=== PATIENT | female | born 1955 | race American Indian/Alaskan Native ===

== ENCOUNTER 2018-09-17 15:50 | Emergency (ER) | payer SELFPAY ==
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
[2018-09-17] MEDS ORDERED: IBUPROFEN PO ONE (18:04)
[2018-09-17] MEDS ORDERED: IBUPROFEN ONE (18:07)
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
[2018-09-18 19:23] VITALS: BP 170/84
== END 2018-09-17 18:56 | disposition home or self-care (01) ==
LOC: ED 15:50
DX: M54.2 Cervicalgia (principal); I10 Essential (primary) hypertension; E03.9 Hypothyroidism, unspecified; V89.2XXA Person injured in unspecified motor-vehicle accident, traffic, initial encounter; Y93.89 Activity, other specified; Y92.488 Other paved roadways as the place of occurrence of the external cause; Y99.8 Other external cause status
CPT/HCPCS: 72040; 99283